=== PATIENT | male | born 1965 | race Caucasian/White ===

== ENCOUNTER → 2016-09-22 | Outpatient (CLI) | payer OTHER ==
--- NOTE | 2016-09-22 16:20 | XR ---
Left shoulder HISTORY: Left shoulder pain 3 views of the left shoulder No comparisons Bone mineralization, joint spaces and alignment are maintained. Distal acromion is downturned. Questi on some calcific tendinitis change. Left lung apex as visualized is normal. IMPRESSION: Correlate for possible impingement. There may be calcific tendinitis. Shoulder MRI may be of benefit.
--- NOTE | 2016-09-22 16:23 | XR ---
Lumbosacral spine HISTORY: Low back pain 5 views of the lumbosacral spine Lumbar vertebral bodies show preserved height and alignment. There is multilevel spondylosis. Loss of disc height present at L3-4 is mild. Sclerosis present in the posterior elements. No evident spondyl olysis. IMPRESSION: Degenerative disc disease facet arthropathy.
== END ==
LOC: RADXRMAIN 11:21
PROVIDERS: ATTEND Internal Medicine
DX: M51.36 Other intervertebral disc degeneration, lumbar region (principal); M46.97 Unspecified inflammatory spondylopathy, lumbosacral region; M25.512 Pain in left shoulder; M25.612 Stiffness of left shoulder, not elsewhere classified
CPT/HCPCS: 72110

== ENCOUNTER → 2020-06-25 | Outpatient (CLI) | payer MEDICAID ==
--- NOTE | 2020-06-25 16:48 | XR ---
Cervical spine HISTORY: Neck pain, upper back pain 6 views of the cervical spine submitted Carotid artery calcifications are suspected. Foraminal encroachment is present on the left at C3-4, C 4-5 and on the right at C3-4 and C4-5. There is multilevel spondylosis. Cervical vertebral bodies teri w preserved height. Loss of disc height is present intervertebral levels C2-3, C4-5 and C5-6, C6-7. M ultilevel facet arthropathy. IMPRESSION: Degenerative disc disease and facet arthropathy, foraminal encroachment
--- NOTE | 2020-06-25 16:50 | XR ---
Thoracic spine HISTORY: Upper back pain 3 views of the thoracic spine correlated to cervical spine same date There is multilevel spondylosis present. Some loss of disc height present at intervertebral levels. T horacic vertebral bodies show preserved height. There is mild spinal curvature. Bone mineralization i s maintained. Thoracic lumbar junction not well seen. IMPRESSION: Degenerative disc disease. Spinal curvature.
== END | disposition home or self-care (01) ==
LOC: RADXRMAIN 14:38
PROVIDERS: ATTEND Internal Medicine
DX: M50.30 Other cervical disc degeneration, unspecified cervical region (principal); M47.812 Spondylosis without myelopathy or radiculopathy, cervical region; M51.34 Other intervertebral disc degeneration, thoracic region; M43.9 Deforming dorsopathy, unspecified
CPT/HCPCS: 72050; 72072

== ENCOUNTER → 2023-12-10 | Outpatient (CLI) | payer MEDICAID ==
--- NOTE | 2023-12-10 16:07 | XR ---
EXAMINATION TYPE: XR lumbosacral spine min 4V DATE OF EXAM: 12/10/2023 2:58 PM CLINICAL INDICATION:Male, 58 years old with history of M54.50 LOWER BACK PAIN; [facility] COMPARISON: 09/22/2016 TECHNIQUE: XR lumbosacral spine min 4V - Frontal, lateral , bilateral oblique and coned in L5-S1 late ral views of the spine. FINDINGS: There is increased wedging of the L1 vertebrae noted 25% height loss. No additional fractur es. Multilevel degeneration changes with osteophyte formation and disc space narrowing and facet join t arthropathy. IMPRESSION: Wedging of the L1 vertebrae with 25% height loss, this has increased from prior. Correlate with MRI f or acute fracture.
== END | disposition home or self-care (01) ==
LOC: RADXRMAIN 14:17
PROVIDERS: ATTEND Internal Medicine
DX: M48.56XA Collapsed vertebra, not elsewhere classified, lumbar region, initial encounter for fracture (principal)
CPT/HCPCS: 72110

== ENCOUNTER → 2023-12-17 | Outpatient (CLI) | payer MEDICAID ==
--- NOTE | 2023-12-17 09:58 | MR ---
EXAMINATION TYPE: MR lumbar spine wo con DATE OF EXAM: 12/17/2023 COMPARISON: X-ray 12/10/2023 HISTORY: Fall and Lifting injury fracture L1 x2 weeks ago TECHNIQUE: T1 and T2 axial and sagittal images of the lumbar spine are submitted. FINDINGS: There is no abnormal signal seen within the visualized spinal cord or paraspinal soft tissu es. Multilevel disc desiccation and degenerative disc disease. Mild adrenal left adrenal thickening. T12-L1 minimal left paracentral disc bulging with no disc herniation, canal stenosis or foraminal enc roachment. At L1-2 there is there is an acute to subacute mild to moderate superior endplate compression fractur e with marrow edema L1. Small amount of paraspinal hematoma. No evidence of canal stenosis or signifi cant retropulsion. No disc herniation or foraminal encroachment. Minimal left paracentral disc bulgin g. At L2-3 there is no disc herniation or canal stenosis. No foraminal encroachment. At L3-4 there is no disc herniation or canal stenosis. No foraminal encroachment. At L4-5 there is broad-based mild disc bulging greater laterally to the left with mild left foraminal encroachment. At L5-S1 there is no disc herniation or canal stenosis. No foraminal encroachment. Facet arthropathy. IMPRESSION: 1. Acute to subacute mild to moderate compression fracture L1 with approximately 15% loss of disc hei ght. No significant retropulsion. There is marrow edema extending into the pedicle. Recommend CT scan to exclude posterior element involvement. 2. Disc bulging greater laterally left L4-L5 with mild left foraminal encroachment. A Yellow level critical message alert has been initiated for Joycelyn Sheikh MD via the [employer] Critical Results System on 12/17/2023 9:56 AM. This message alert has been sent to Joycelyn Sheikh MD via the preferences provided by the clinician for the receipt of Radiology Critical Findings. Message ID [id number].
== END | disposition home or self-care (01) ==
LOC: RADMRIMAIN 12-15 14:21
PROVIDERS: ATTEND Internal Medicine
DX: M48.56XA Collapsed vertebra, not elsewhere classified, lumbar region, initial encounter for fracture (principal); R60.9 Edema, unspecified; M51.36 Other intervertebral disc degeneration, lumbar region
CPT/HCPCS: 72148

== ENCOUNTER → 2024-01-04 | Outpatient (CLI) | payer MEDICAID ==
[2024-01-04 11:24] LABS: HCT 45.3 % (39.0-53.0); HGB 14.3 gm/dL (13.0-17.5); MCH 29.1 pg (25.0-35.0); MCHC 31.6 g/dL (31.0-37.0); Mean Platelet Volume 7.2; Platelet Count 357 k/uL (150-450); RBC 4.93 m/uL (4.30-5.90); RDW 13.6 % (11.5-15.5); WBC 6.6 k/uL (3.8-10.6)
[2024-01-04 16:02] LABS: INR 1.01 sec (0.93-1.11); Prothrombin Time 10.9 sec (9.9-11.9)
[2024-01-04 16:07] LABS: ALT 18 U/L (10-49); AST 18 U/L (14-35); Albumin 4.6 g/dL (3.8-4.9); Albumin/Globulin Ratio 1.84 Ratio (1.60-3.17); Alkaline Phosphatase 147 U/L (41-126); BUN/Creat Ratio 18.25 Ratio (12.00-20.00); Blood Urea Nitrogen 14.6 mg/dL (9.0-27.0); Carbon Dioxide 24.2 mmol/L (21.6-31.8); Chloride 105 mmol/L (96-109); Globulin 2.5 g/dL (1.6-3.3); Glucose 143 mg/dL (70-110); Potassium 4.6 mmol/L (3.5-5.5); Sodium 140 mmol/L (135-145); Total Bilirubin 0.3 mg/dL (0.3-1.2); Total Protein 7.1 g/dL (6.2-8.2)
== END | disposition home or self-care (01) ==
LOC: LABPAT 10:15
PROVIDERS: ATTEND Orthopaedic Surgery
DX: Z01.818 Encounter for other preprocedural examination (principal); S32.009A Unspecified fracture of unspecified lumbar vertebra, initial encounter for closed fracture; R00.1 Bradycardia, unspecified; Z22.322 Carrier or suspected carrier of Methicillin resistant Staphylococcus aureus; X58.XXXA Exposure to other specified factors, initial encounter
CPT/HCPCS: 80053; 82306; 85027; 85610; 87070; 93005

== ENCOUNTER 2024-02-02 12:13 | Day surgery (SDC) | payer MEDICAID ==
[2024-01-29 10:42] VITALS: BMI 29.7
--- NOTE | 2024-02-01 17:24 | P.HPOR ---
History of Present Illness H&P Date: 01/04/24 .D:Date: 01/04/24 : 09:46am .T:Title: [facility] H&P Age: 58 year Height: 5'10" Weight: 228 lbs BP:/ BMI: 32.71 kg/m2 Occupation: Principal Network Engineer VAS: 6 CC: Low back pain DOI: 12/06/23 DOS: n/a IMPRESSION: It was my pleasure to have seen and examined Osiel. I reviewed the patient's clinical syndrome, physical findings, and imaging studies during the appointment today. It is my impression that the patient has a diagnosis of. 1. L1 vertebral compression fracture 2. Mechanical low back pain PLAN: -Limit your bending, lifting, and twisting to nothing >5lbs. Limit pushing and pulling activity. -I discussed treatment options with the patient, including operative and non- operative options, and they have elected to proceed with the following surgical procedure: L1 Kyphoplasty The indications, risks, benefits, and alternatives to surgery were discussed with the patient and family at length. Specifically (but not limited to) the risks of infection, stiffness, recurrence of symptoms, need for revision surgery, local numbness, neurovascular injury, and blood clots were discussed. The patient's questions were answered. The decision to proceed was made. Consent will be obtained for the procedure. -Ambulate daily -Take medications as directed -Ice and rest for pain and swelling control. FOLLOW UP:Post procedure HISTORY: Mr. Landrum presents to the office today, 01/04/24, for an evaluation of his low back pain. Patient describes a constant sharp and aching lumbar pain with an onset of 12/06/23 after patient states he was pulling a safe up a set of stairs and his feet slipped and patient fell onto his butt. Patient did seek medical attention at his PCP. Advanced imaging was ordered and demontrated a L1 vertebral fracture. Patient denies any radicular symptoms or numbness/tingling into the bilateral lower extremities. Patient does report his symtpoms are exacerbated with sitting and bending. For his symptoms he is currently taking Percocet and Baclofen prescribed by his PCP. Otherwise patient denies any f/c/sob/cp, perineal numbness or tingling, bowel or bladder incontinence/retention. Patient is ambulatoryindependently. The patients' past social, medical, family, surgical history, as well as review of systems, have been reviewed. Please refer to the Neurosurgery History and Physical form that has been scanned into our electronic medical record system. 16 points review of systems completed and as stated in HPI, all other systems reviewed are negative. PAST TREATMENTS: Physical Therapy in the past 6 months? No Did it help? n/a Physician Directed Home Exercises: No Medications: Percocet and Baclofen Alternative Interventions: Chiropractic: No Massage therapy: No R.I.C.E: Yes Brace: No Injections: No Social History: Reviewed, see appropriate section of the chart for details. P3 Family History: Reviewed, see appropriate section of the chart for details. P2 Past Medical History: Reviewed, see appropriate section of the chart for details. P1 Current Medications: Rx: aspirin 81 mg tablet,delayed release Ref: 0 Instructions: take 1 tablet (81 mg) by oral route once daily Rx: atenoloL 25 mg tablet Ref: 0 Instructions: take 1 tablet (25 mg) by oral route once daily Rx: Janumet 50 mg-500 mg tablet Ref: 0 Instructions: take 1 tablet by oral route 2 times per day with meals Rx: Micardis 20 mg tablet Ref: 0 Instructions: take 1 tablet (20 mg) by oral route once daily Rx: simvastatin 20 mg tablet Ref: 0 Instructions: take 1 tablet (20 mg) by oral route twice daily Rx: baclofen Ref: 0 Rx: Percocet Ref: 0 P1 RADIOGRAPHS: XRay Lumbar Multiview (AP, Lateral, Flexion, Extension) with AP pelvis; [facility] Wedging of the L1 vertebrae with 40-50% height loss, this has increased from prior imaging taken on 12/10/23. [facility]: IMPRESSION: 1. Acute to subacute mild to moderate compression fracture L1 with approximately 15% loss of disc height. No significant retropulsion. There is marrow edema extending into the pedicle. Recommend CT scan to exclude posterior element involvement. 2. Disc bulging greater laterally left L4-L5 with mild left foraminal encroachment. PHYSICAL EXAM: General: AOX3, NAD, Well hydrate, Well nourished HEENT: No lumps or masses Extremities: No color changes, no pooling Hairy Patches: ABSENT Dorsal Skin Dimples: Normal [employer] spots: ABSENT Surgical Incisions: n/a Muscle Appearance: Well formed, no atrophy Palpation: Midline: Yes, around the L1 level Paracervical: NO Parathoracic: NO Paralumbar: NO SIJ Testing: No Postural Balance: Coronal: BALANCED Sagittal: BALANCED Shoulder height: LEVEL Pelvic Girdle: LEVEL ROM and Appearance: Neck: UNRESTRICTED Lumbar: RESTRICTED Shoulders: Symmetrical Hips: Symmetrical Knees: Symmetrical Hands: Symmetrical Feet: Symmetrical VASCULAR STATUS: RUE- 2 LUE-2 RLE-2 LLE-2 Edema: NONE NEUROLOGICAL EXAMINATION: Mental Status: Awake, alert, oriented fully with normal attention, concentration and memory. Fluent appropriate speech. CRANIAL NERVES: I: Olfactory not tested. II: Visual acuity normal, no visual field deficit noted with confrontation. III,IV: Normal pupillary reflexes & intact extraocular movements without nystagmus. V,: Intact symmetrical facial sensation. VII: Intact symmetrical facial motor movementVIII: Hearing intact. IX,X: Intact gag, swallow, & normal voice. XI: Sternocleidomastoid, trapezius function intact. XII: Tongue midline with normal movements. TENSIONING: SLR-NEG Lhermittes- NEG Spurling's Sign- NEG Cubital Percussion- NEG Tinels at wrist- NEG MOTOR EXAM (0-5/5, NT) Muscle appearance:Symmetrical, without signs of atrophy or dystrophy UPPER EXTREMITY RIGHT LEFT Shoulder Abduction 5 5 Biceps 5 5 Triceps 5 5 Wrist Extension 5 5 Hand Intrinsics 5 5 Site Controller 5 5 -Hand and finger dexterity intact bilaterally? YES -Dysdiadochokinesia examination negative bilaterally? YES LOWER EXTREMITY RIGHT LEFT Hip Flexion 5 5 Knee Extension 5 5 Knee Flexion 5 5 Dorsiflexion 5 5 Plantarflexion 5 5 EHL 5 5 FHL 5 5 REFLEXES (0-4/2, NT): RUE-2LUE-2 RLE-2 LLE-2 PATHOLOGICAL REFLEXES: Hoffmans: ABSENT BL Clonus: ABSENT BL Babinski: NEG BL Rectal Tone: INTACT SENSATION (0-4, NT): RUE-2LUE-2 RLE-2 LLE-2 Dermatomal deficit: - GAIT AND FUNCTIONAL EVALUATION: Ambulatory aids- INDEPENDENT Rombergs test- NEG toe/heel walk- INTACT Squatting to a min of 60 deg and back- ABLE with difficulty Single leg stance- ABLE Hand to finger (nose)- ABLE smooth Trendelenburg sign negative bilaterally PATIENT EDUCATION: Medications Reviewed: YES In our visit today Mr. Landrum and I have had a chance to go over my understanding of the patient's current condition, the natural course history without intervention and various interventional options. Questions were invited and answered, and the patient wishes to proceed as outlined above. I will be sure to keep you updated after Mr. Landrum returns here for further follow-up. Thank you again for your referral. Please do not hesitate to contact me if you have any further questions. Past Medical History Past Medical History: Cancer, Diabetes Mellitus, Hyperlipidemia, Hypertension, Myocardial Infarction (AL), Osteoarthritis (OA) Additional Past Medical History / Comment(s): Prostate cancer diagnosed around 2021, "have 56 seeds in me". Last Myocardial Infarction Date:: 2004 History of Any Multi-Drug Resistant Organisms: None Reported Past Surgical History: Heart Catheterization With Stent Additional Past Surgical History / Comment(s): 1 cardiac stent, prostate surgery for seed placement. Past Anesthesia/Blood Transfusion Reactions: No Reported Reaction Date of Last Stent Placement:: 2004 Smoking Status: Former smoker - Past Family History Mother Family Medical History: No Reported History Medications and Allergies Home Medications Medication Instructions Recorded Confirmed Type Aspirin [Adult Low Dose Aspirin EC] 81 mg PO DAILY 01/29/24 01/29/24 History Baclofen 10 mg PO HS 01/29/24 01/29/24 History Ergocalciferol [Vitamin D2 (1250 1,250 mcg PO WE 01/29/24 01/29/24 History Mcg = 55574 Iu)] Simvastatin [Zocor] 10 mg PO BID 01/29/24 01/29/24 History Tamsulosin [Flomax] 0.4 mg PO HS 01/29/24 01/29/24 History Telmisartan 40 mg PO QAM 01/29/24 01/29/24 History atenoloL 25 mg PO QAM 01/29/24 01/29/24 History diazePAM [Valium] 5 mg PO HS 01/29/24 01/29/24 History oxyCODONE-APAP 10-325MG [Percocet 1 tab PO Q6H PRN 01/29/24 01/29/24 History 10-325 mg] sitaGLIPtin PHOS/metFORMIN HCL 1 tab PO BID 01/29/24 01/29/24 History [Janumet 50-500 mg Tablet] Allergies Allergy/AdvReac Type Severity Reaction Status Date / Time No Known Allergies Allergy Verified 01/29/24 10:20 Physical Examination Osteopathic Statement: *. No significant issues noted on an osteopathic structural exam other than those noted in the History and Physical/Consult. Assessment and Plan (1) Compression fracture of L1 lumbar vertebra Status: Acute Code(s): S32.010A - WEDGE COMPRESSION FRACTURE OF FIRST LUMBAR VERTEBRA, INIT SNOMED Code(s): 027156666 (2) Back pain due to injury Status: Acute Code(s): M54.9 - DORSALGIA, UNSPECIFIED SNOMED Code(s): 248694914 (3) Debility Status: Acute Code(s): R53.81 - OTHER MALAISE SNOMED Code(s): 95549758
[~2024-02-02 12:13] MED LIST: HYDROmorphone 0.5 MG/0.5 ML SYRINGE IVP PRN; MIDAZOLAM 2 MG/2 ML VIAL IV PRN; TRANEXAMIC 1,000 MG/100ML-NACL 1,000 MG in SALINE 1 100ML.BAG IVPB PRN
[2024-02-02] MEDS: IV FLUID CONTINUATION 1,000 ML IV ONE ×2 (12:38)
[2024-02-02 13:00] LABS: Glucose,Whole Blood 121 mg/dL (70-110)
[2024-02-02] MEDS: ACETAMINOPHEN TAB 500 MG TAB PO PRN (13:03)
[2024-02-02] MEDS: GABAPENTIN 300 MG CAP PO PRN (13:04)
[2024-02-02] MEDS: ONDANSETRON 4 MG/2 ML VIAL IVP PRN (13:04)
[2024-02-02] MEDS: LACTATED RINGERS 1,000 ML IV SCH (13:04)
[2024-02-02] MEDS ORDERED: ROCURONIUM 10 MG/ML (5 ML VIAL) IV ONE (13:33)
[2024-02-02] MEDS ORDERED: SUCCINYLCHOLINE CHLORIDE 200 MG/10 ML VIAL IV ONE (13:33)
[2024-02-02] MEDS ORDERED: MIDAZOLAM 2 MG/2 ML VIAL ONE (13:33)
[2024-02-02] MEDS ORDERED: fentaNYL (PF) 50 MCG/ML 2 ML AMP ONE (13:33)
[2024-02-02] MEDS ORDERED: ePHEDrine 50 MG/ML 1 ML VIAL ONE (13:33)
[2024-02-02] MEDS ORDERED: NEOSTIGMINE 1 MG/ML 10 ML VIAL ONE (13:33)
[2024-02-02] MEDS ORDERED: GLYCOPYRROLATE 0.2 MG/ML 2 ML VIAL ONE (13:33)
[2024-02-02] MEDS ORDERED: LIDOCAINE 1% INJ 10MG/ML (20 ML MDV) ONE (13:33)
[2024-02-02] MEDS ORDERED: PROPOFOL 10 MG/ML 20 ML VIAL IV ONE (13:33)
[2024-02-02] MEDS: BUPIVACAINE (PF) 0.5% 30 ML VIAL SQ ONE ×2 (13:56→14:05)
[2024-02-02] MEDS: IOPAMIDOL M200 10 ML VIAL MISCELLANE ONE (14:05)
[2024-02-02] MEDS: LIDOCAINE 2%-EPI 1:100,000 20 ML VIAL SQ ONE (14:05)
[2024-02-02 14:36] VITALS: TEMP 97
--- NOTE | 2024-02-02 14:38 | FL ---
EXAMINATION TYPE: FL guidance operating room, XR lumbar spine 2 or 3V Intraoperative/procedural fluor oscopic services were provided. Total fluoroscopy time is 1 minute 26 seconds seconds with a total of 4 submitted images to PACS. Please see the operative/procedural note for further details. DAP: 29.853 Gycm2
--- NOTE | 2024-02-02 15:38 | P.OP ---
Date of Procedure: 02/02/24 Preoperative Diagnosis: L1 VCF, 45% LOW BACK PAIN S/P FALL FROM STANDING Postoperative Diagnosis: L1 VCF, 45% LOW BACK PAIN S/P FALL FROM STANDING Procedure(s) Performed: L1 KYPHOPLASTY WITH BIOPSY Implants: SYDNEE CEMENT Anesthesia: GETA Surgeon: Devyn Wilkinson Estimated Blood Loss (ml): 5 IV fluids (ml): 500 Urine output (ml): 0 Pathology: other (L1 VERTEBRAL BODY) Condition: stable Disposition: PACU Indications for Procedure: Spine Surgery Clinical and Risk Review Osiel Sanchez is a 58 yo male presenting for evaluation of low back pain after falling at home trying to move a 700 lb object. It was my pleasure to have seen and examined Osiel Sanchez. In our visit today we have had a chance to go over subjective complaints, physical examination findings and treatments including the natural course history without intervention and various interventional options. The patients imaging demonstrates L1 compression deformity with anterior wedging, 40-45% which has increased since his initial MRI done when compared to office visit Xrays which show the progression of compression deformity and local kyphosis secondary to the fracture. On a physical exam, Osiel Sanchez demonstrates TTP about the L1 SP and paraspinal region with painful ROM of the lumbar spine and inability to perform ADLs due to pain in his low back after this fall. He is continuing to have pain despite conservative measures. I have explained to the patient that as their condition progresses it will cause further neurological deficits and eventual paralysis. Based on the patients imaging, physical exam, and the rapid progression and disabling nature of their symptoms, at this time I recommend surgery in the form of a: L1 KYPHOPLASTY WITH BIOPSY. I discussed the risk and benefits of this procedure at length with Osiel Sanchez. The patient and family at bedside today agreed to consider pursuing the procedure above mentioned. Prior to surgery, she should follow up with her PCP (Cardio, ID, IM etc) for clearance. Questions were invited and answered, and the patient wishes to proceed as outlined below. Currently, I am recommendin. L1 KYPHOPLASTY WITH BIOPSY 2. Follow up with PCP for surgical clearance 3. Review of surgical risks and benefits as well as an educational packet on the proposed surgical procedure. Risks: All surgical procedures come with inherent risks, including those related to positioning, anesthesia, intraoperative findings, and postoperative complications. It is important to understand that surgery does not come with any guarantee of a successful outcome as complications and adverse events are always possible. The patient was given a handout in the office today discussing the surgical procedure and risks associated with the intervention, both of which were discussed with the patient. These risks include but are not limited to the following: Experiencing same, different or even worse symptoms in back, neck, arms, or legs compared to before surgery. Requiring further surgery or other forms of treatment presently or at some time in the future at same or other levels of the intended spine surgery. On an extreme but fortunately relatively rare basis severe complications such as blindness, stroke, heart attack, temporary and/or permanent nerve injury, paralysis, coma, or may occur, sometimes without known explanation. Surgical complications may include but are not limited to risk of infection, fluid accumulation in the surgical dissection site, including a seroma or hematoma, that requires additional surgery, wound drainage, bleeding, new numbness or weakness, vision changes/loss, spinal fluid leakage, non-healing and/or infected incision, headaches, difficulty or inability to swallow, hoarseness, hemopneumothorax, pneumothorax, impotence, retrograde ejaculation, vaginal dryness; injury to nerves, spinal cord, blood vessels, lymphatics or other vital organs (i.e., bowel injury, injury to the great vessels); heterotopic bone formation; complications related to the hardware such as screws, rods, cages including misplaced hardware, device failure, instrumentation at the wrong spine level, hardware fracture/breakage, or hardware loosening; vertebral failure of the spinal column above or below the newly placed hardware; retained surgical instrumentations or devices and the need for further surgery. Medical risks of the planned spine surgery include but are not limited to generalized Infections to the whole body or local areas outside of the surgical site (sepsis), heart attack, bleeding, anaphylaxis, meningitis, seizure, epilepsy, hearing loss, burn woods, laceration of the head or other areas of the body, bruising, hypersensitivity of the skin, bladder over distension; allergic reaction; shoulder injury related to positioning; fat, blood and air clots to ot her areas of the body like heart, lungs, brain; failure of internal organs such as lungs, kidneys, liver and excessive bleeding. If blood transfusions are necessary, note that transfusions may cause intolerance reactions such as anaphylaxis or other complex reactions. Despite best efforts, the results of spine surgery might not heal in terms of bone, soft tissues such as skin, fascia, ligaments, and joints. Additionally, in order to achieve best possible results, spine surgery may be carried out beyond the initially planned levels and involve decompression, fusion including insertion of hardware at levels other than the original intended area of surgical interest change some portions of the procedure in order to ensure the best possible outcomes. With spine surgery and spinal fusion, there are different off label uses of instrumentation (devices, implants and hardware) as well as biological substances (bone morphogenic proteins, demineralized bone matrix) as well as using extra bone from allograft sources (i.e. cadaver bone) or autograft (iliac crest bone, ribs, or the spine itself). The patient has been given information about these practices and their inherent risks and benefits. The patient has had a chance to review all the listed information, has been given print outs detailing this information, and has had all his/her questions answered to their satisfaction. It was my pleasure to have seen and examined Osiel Sanchez]. In our visit today we have had a chance to go over my understanding of our patient's current condition, the natural course history without intervention and various interventional options. Questions were invited and answered, and the patient wishes to proceed as outlined above. I have seen and examined the patient for 25 minutes and we have spent more than 50% of the time in repeat and detailed counseling about the patient's condition, its natural course history without and as much as can be predicted with surgery and re-review of various surgical treatment options. In conclusion, Osiel Sanchez and SPOUSE requested we proceed with the above suggested surgery and are willing to accept risks and limitations of the suggested surgery as nature of the disease process and our best attempts at treatment for the condition. Thank you again for allowing us to be part of your patient's care. Please don't hesitate to contact me if you have any further questions. Signed and authenticated by: Devyn Miller [facility] [address], [address] [address] Description of Procedure: L1 KYPHOPLASTY The patient was seen and examined in the preoperative area. All preoperative protocols were followed. Informed consent was obtained, risks and benefits of the procedure were discussed at length. Risks including bleeding infection damage to the surrounding tissue and risk of re-operation were discussed with the patient. Risk of anesthesia up to and including was discussed with the patient. These are outlined in the risk review. They were willing to accept these risks and all the risks of surgery. The patient was given a weight-based dose of antibiotics in the form of 2 g Ancef. The patient was seen and evaluated by the anesthesia team who deemed them fit for surgery. The site was marked, the patient was willing to proceed with the procedure. The patient was transferred to the operative suite by the Department of anesthesia. They were then drifted off to sleep by the department anesthesia and GETA was performed. The patient tolerated this well. Once confirmation of lines and ventilation the patient was transferred to a prone Stanley table very carefully. All bony prominences including wrists, elbows, axilla, chest, hips, and thighs, and feet were padded very well. Special attention was paid to the genitalia, and these were padded accordingly. SCDs were placed on bilateral lower extremities and were connected. Arms were well padded and placed on arm boards up and out in the 90/90 position. Once in position, again we confirmed good ventilation capabilities and that lines were running appropriately. The patients Lumbar spine was then exposed. 1010s were placed outlining the incision site. Standard alcohol was used to clean the incision site and allowed to dry. C-arm was used to needle localize the pedicles at L1 and bio-homer the patient and confirm level for incision which was marked with a skin marker. Operative briefing was performed with all teams and everyone in agreement to proceed. The patient was then prepped and draped in a normal sterile fashion. Timeout was then performed, and all parties agreed with the procedure to be performed. Skin roshan was made. Jamshitdis was passed into the L1 vertebral body via the pedicle. This was done with biplane fluoroscopy. Once in good position in the body the trochar removed. Biopsy needle was passed into the body and biopsy taken. Drill was then passed and biopsy material taken from drill as well. Curette used to make space and reduce the fracture. Balloon was then passed an inflated which showed reduction of endplate on AP and Lateral and confirmed central placement. Cement was then placed bilaterally under flouroscopic guidance. Good fill of cement was seen without extravasation. Pt remained stable through process. Once good fill, the Jamshedi was removed and the wound irrigated. AP and lateral confirmed good reduction of the fracture and good cement fill. The skin was closed with a simple stitch and dressed with glue and a bandaid. The patient was then transferred off the table back to their hospital bed a- traumatically. They were extubated by the department of anesthesia. They were then transferred to PACU in stable condition having tolerated the procedure with no complications.
[2024-02-02 15:55] VITALS: BP 103/59; PULSE 64; RESP 18
== END 2024-02-02 16:35 | disposition home or self-care (01) ==
LOC: OR 12:13
PROVIDERS: ATTEND Orthopaedic Surgery
DX: M48.56XA Collapsed vertebra, not elsewhere classified, lumbar region, initial encounter for fracture (principal); M19.90 Unspecified osteoarthritis, unspecified site; I25.2 Old myocardial infarction; E78.5 Hyperlipidemia, unspecified; I10 Essential (primary) hypertension; I25.10 Atherosclerotic heart disease of native coronary artery without angina pectoris; R60.9 Edema, unspecified; C61 Malignant neoplasm of prostate; E11.9 Type 2 diabetes mellitus without complications; F12.90 Cannabis use, unspecified, uncomplicated; R53.81 Other malaise; Y92.009 Unspecified place in unspecified non-institutional (private) residence as the place of occurrence of the external cause; Z95.5 Presence of coronary angioplasty implant and graft; Z85.46 Personal history of malignant neoplasm of prostate; Z87.891 Personal history of nicotine dependence; Z79.84 Long term (current) use of oral hypoglycemic drugs; Z79.899 Other long term (current) drug therapy; Z79.82 Long term (current) use of aspirin
CPT/HCPCS: 72100; 22514; J2250; J0330; J2710; J0690; J2405; J2001; J3010; J2704; Q9966; J0665; J1596; 88307; 88311

== ENCOUNTER → 2024-08-09 | Outpatient (CLI) | payer MEDICAID ==
--- NOTE | 2024-08-10 08:39 | XR ---
EXAMINATION TYPE: XR thoracic spine 2V DATE OF EXAM: 08/09/2024 5:38 PM COMPARISON: 06/25/2020 CLINICAL INDICATION: Male, 59 years old with history of M54.6, TECHNIQUE: Frontal, lateral, and swimmer's view of thoracic spine are obtained. FINDINGS: Thoracic spine show satisfactory alignment without evidence of acute fracture or dislocatio n. Vertebral body heights are preserved. [id number] degenerative disc space narrowing with sca ttered spondylosis. Mild curvature convex to the left. Visualized ribs are unremarkable. IMPRESSION: No acute fracture or dislocation is seen in the thoracic spine. ICD 10 NO FRACTURE, INIT IAL EVALUATION [facility], , 08/10/2024 8:37 AM
== END | disposition home or self-care (01) ==
LOC: RADXRMAIN 17:13
PROVIDERS: ATTEND Internal Medicine
DX: M47.894 Other spondylosis, thoracic region (principal)
CPT/HCPCS: 72070

== ENCOUNTER → 2024-10-18 | Outpatient (CLI) | payer MEDICAID ==
--- NOTE | 2024-10-18 08:48 | MR ---
INDICATION: Patient age:Male; 59 years old; Reason for study: M54.6 PAIN IN THORACIC SPINE; [facility]. COMPARISON: Thoracic spine radiograph 08/09/2024, 06/25/2020, lumbar spine radiographs 02/02/2024, MRI l umbar spine 12/17/2023, lumbosacral spine radiographs 12/10/2023, 09/22/2016. TECHNIQUE: Multi planar, multi sequence imaging was performed utilizing: T1-weighted, T2-weighted, an d turbo inversion recovery imaging of the thoracic spine. The patient was not given Gadolinium. FINDINGS: The thoracic vertebral bodies have preserved heights and alignment. Vertebral augmentation changes of the L1 vertebral body from prior compression fracture. Small Schmorl's node involving the inferior e ndplate of the T11 vertebral body. Multilevel anterior osteophytosis. Type I Modic changes involving the endplates around the C5-C6 vertebral bodies anteriorly. The remaining osseous structures have nor mal signal intensity. Thoracic spinal cord appears unremarkable. Multilevel disc desiccation. Small l eft paracentral disc protrusion at T7-T8 with minimal effacement of the anterior thecal sac. No signi ficant central canal stenosis. No evidence for significant central canal or neural foraminal stenosis of the thoracic spine. IMPRESSION: 1. Small left paracentral disc protrusion at T7-T8 without significant central canal stenosis. 2. Mild multilevel degenerative disc disease with multilevel anterior osteophytosis. 3. Vertebral augmentation changes of previous is seen at L1 compression fracture. [facility], , 10/18/2024 8:46 AM
== END | disposition home or self-care (01) ==
LOC: RADMRIMAIN 07:17
PROVIDERS: ATTEND Internal Medicine
DX: M51.34 Other intervertebral disc degeneration, thoracic region (principal); M51.24 Other intervertebral disc displacement, thoracic region
CPT/HCPCS: 72146